=== PATIENT | female | born 1990 | race Caucasian/White ===

== ENCOUNTER → 2020-12-31 20:20 | Outpatient (CLI) | payer OTHER, SELFPAY | PROVIDERS: Visit Provider Nurse Practitioner Family | DX: Z20.822 Contact with and (suspected) exposure to COVID-19 (principal) | CPT/HCPCS: U0003 ==

== ENCOUNTER 2023-07-05 18:02 | Emergency (ER) | payer OTHER, SELFPAY ==
[2023-07-05 18:50] VITALS: BP 118/76; PULSE 68; RESP 18; TEMP 36.7; O2SAT 99; BMI 25.3
--- NOTE | 2023-07-05 19:03 | EXP.UTC ---
Discharge Plan Disposition Patient Disposition: Home, Self-Care Condition: Good Prescriptions Prescriptions: New nitrofurantoin monohyd/m-cryst [Macrobid] 100 mg capsule 100 mg PO Q12H 7 Days Qty: 14 0RF Rx Instructions: must administer with a meal/food phenazopyridine [Pyridium] 200 mg tablet 200 mg PO Q8H 2 Days Qty: 6 0RF No Action escitalopram oxalate 5 mg tablet 5 mg PO DAILY escitalopram oxalate 10 mg tablet 10 mg PO DAILY Referrals Follow up/Referrals: Tamera Singer PA [Primary Care Provider] - See instructions Activity Restrictions/Add. Instructions Additional Instructions/Restrictions: *Increase fluids. Water not Soda or Tea *Start antibiotic immediately and be sure to take as ordered for the FULL length of time although you should start to see improvement over the next 48 hours *Pyridium as needed Remember this medication will turn your urine . This is normal but it will stain what ever it gets on *You should not use Pyridium for more than 48 hours. If so , follow up with your primary physician to review urine culture and ensure that antibiotic is adequate for infection *Be SURE to follow up anytime for new or worsening symptoms with your family doctor. AND in 48 hours for urine culture results with your family doctor, if you do not have a doctor then you may call back to the [facility] for urine culture results and further treatment. We do recommend that you choose and establish care with a Primary Care Physician. ?AND follow up with them ?in 10-14 days to repeat UA to ensure infection is resolved and blood no longer present *Be sure to let your PCP know that we sent urine cultures from the [facility] so they can follow up to ensure that you area the on the correct antibiotic Call your doctor office and make appointment for 48 hours (2 days from today) ?to follow up and get the results of your urine culture and further treatment Clinical Impressions Clinical Impression: UTI (urinary tract infection) Stand Alone Forms Stand Alone Forms: Work/School Release Instructions Patient Instructions: DI for Urinary Tract Infection (UTI), Urinary Tract Infection Discharge ED Provider: Emilie Fontaine [facility] HPI General Stated complaint: Burning,frequency with urination Mode of Arrival: Ambulatory Source of Information: Patient Limitations: No Limitations Time Seen by Provider: 07/05/23 19:04 Description of Symptoms (Recalled from Triage Doc. by RN): PATIENT C/O URINARY FREQUENCY/URGENCY AND BLADDER SPASMS THAT STARTED TODAY HEENT Symptoms (Recalled from RN notes): No Resp Symptoms (Recalled from RN notes): No Skin Symptoms (Recalled from RN notes): No MS Symptoms (Recalled from RN notes): No Functional Status (Recalled from RN notes): WNL History of Present Illness Provider Complaint: Patient states that she started earlier with burning with urination, feeling of urgency and frequency, and feeling like she was having bladder spasms States as the day went on symptoms got worse so this evening when it was still bothering her she came in to get it checked and get something Related Data Home Medications Medication Instructions Recorded Confirmed escitalopram oxalate 5 mg tablet 5 mg PO DAILY 03/31/21 07/05/23 escitalopram oxalate 10 mg tablet 10 mg PO DAILY 07/05/23 07/05/23 Previous Rx's Medication Instructions Recorded nitrofurantoin 100 mg PO Q12H 7 days #14 caps 07/05/23 monohydrate/macrocrystals 100 mg capsule (Macrobid) phenazopyridine 200 mg tablet 200 mg PO Q8H pain 2 days #6 tabs 07/05/23 (Pyridium) Allergies Allergy/AdvReac Type Severity Reaction Status Date / Time Penicillins [PENICILLINS] Allergy Unknown Verified 03/31/21 13:44 From Penicillin G Sodium Allergy Unknown Uncoded 12/31/20 18:38 PCN (penicillin) Allergy Unknown Uncoded 12/31/20 18:38 Penicillin Allergy Unknown Uncoded 12/31/20 18:38 Worker's Comp Is this a Worker's Comp case?: No [facility] Disclaimer: The information contained in this section may have been updated after the patient was seen, as this information can be updated by other users. Medical History (Updated 07/05/23 @ 19:12 by Emilie Fontaine APRN) Anxiety Social History Smoking Status: Never smoker alcohol intake: never current occupational status: employed Travel in the last 8 weeks: None ROS Obtained: Yes All systems reviewed & no additional complaints except as documented and Yes Systems reviewed as appropriate & no additional complaints except as documented Constitutional Constitutional: Reports system reviewed and no additional complaints, except as documented, Reports as per HPI, Denies body ache, Denies chills and Denies fever(s) ENT Ears, Nose, Mouth, and Throat: Reports system reviewed and no additional complaints, except as documented and Reports as per HPI Cardiovascular Cardiovascular: Reports system reviewed and no additional complaints, except as documented and Reports as per HPI Respiratory Respiratory: Reports system reviewed and no additional complaints, except as documented and Reports as per HPI Gastrointestinal Gastrointestingal: Reports system reviewed and no additional complaints, except as documented and as per HPI Genitourinary Female Genitourinary: Reports system reviewed and no additional complaints, except as documented, Reports as per HPI, Reports dysuria, Reports urinary frequency and Reports urinary urgency Musculoskeletal Musculoskeletal: Reports system reviewed and no additional complaints, except as documented and Reports as per HPI Physical Exam General General appearance: alert and in no apparent distress ENT ENT exam: Present mucous membranes moist Respiratory Respiratory exam: Present normal lung sounds bilaterally; Absent respiratory distress or wheezes Cardiovascular Cardiovascular exam: Present regular rate, normal rhythm and normal heart sounds Neurological Exam Neurological exam: Present alert, oriented X3 and normal gait Medical Decision Making Mario Inquiry Pt receiving controlled substance: No Mario was queried for this patient: No Vital Signs: 07/05/23 18:50 Temperature 98.1 F Temperature Source Oral Pulse Rate [Left Brachial] 68 Respiratory Rate 18 Blood Pressure [Left Arm] 118/76 Blood Pressure Mean [Left Arm] 90 Blood Pressure Source [Left Arm] Automatic Cuff Blood Pressure Position [Left Arm] Sitting 02 Sat by Pulse Oximetry 99 Oxygen Delivery Method Room Air Lab Data Lab results reviewed: Yes I reviewed the patient's lab results. Orders (Tests/Meds): ORDERS Category Date Time Status Urine Culture Stat Micro 07/05/23 18:57 Ordered Medical Decision Narrative: Patient reports that she is currently on her period Reports mother is on her way to warehouse picker her medication so she can start it tonight
[2023-07-05 19:04] LABS: Apearance,Urine Turbid (Clear); Blood, Urine 3+ (Negative); Color,Urine Red (Yellow); Glucose,Urine (UA) Negative (Negative); Ketones,Urine Negative (Negative); Protein,Urine 1+ (Negative); Specific Gravity, Urine 1.025 (1.005-1.030)
[2023-07-05 19:05] LABS: Bilirubin,Urine Negative (Negative); UTC Leukocyte Esterase,Urine 3+ (Negative); UTC Nitrate,Urine Negative (Negative); Urobilinogen,Urine 0.2 EU/dl (0.2)
[2023-07-05 19:11] VITALS: BP 118/76; PULSE 68; RESP 18; TEMP 36.7; O2SAT 99
== END 2023-07-05 19:20 | disposition home or self-care (01) ==
PROVIDERS: Emergency Provider Nurse Practitioner; PCP Physician Assistant
DX: N39.0 Urinary tract infection, site not specified (principal); N32.89 Other specified disorders of bladder; F41.9 Anxiety disorder, unspecified
CPT/HCPCS: 81003; 87086; 99204; 99212; G0463

== ENCOUNTER 2025-01-18 08:02 | Outpatient (CLI) | payer OTHER, SELFPAY ==
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
--- OUTSIDE RECORDS SUMMARY | 2023-09-28 05:05 | XMS_ITS ---
Author Organization [facility] Address [address] [place] [id number] Care Team Providers Care Tax Representative Name Role Phone Shannon Ortiz Primary Care Provider AudeliaJoseSydnie Unavailable [phone] Tamera Singer Unavailable [phone] Results Component Value Reference Range Notes CBC Venipuncture (in house) Reviewed date:10/07/2023 04:47:23 PM Interpretation: Performing Lab: Notes/Report: wbc 5.1 3.5 - 10 lymph 25.7 15 - 50 mid 5.7 2 - 15 gran 68.6 35 - 80 rbc 4.19 3.5 - 5.5 hgb 13.5 11.5 - 16.5 hct 40.2 35 - 55 mcv 95.8 75 - 100 mch 32.2 25 - 35 mchc 33.6 31 - 38 platlet 325 100 - 400 P-Vitamin B12 Reviewed date:10/07/2023 04:47:23 PM Interpretation:Normal Performing Lab: Notes/Report: Test performed by [facility] [address] [place], [place] [address] [address] , [address], [place] [address] Ravinder Webber MD, [employer] CLIA: [id number] Vitamin B12 360 514-7447 pg/mL P-Comprehensive Metabolic Pa ailyn (CMP) Reviewed date:10/07/2023 04:47:23 PM Interpretation:gluc 100 Performing Lab: Notes/Report: Test performed by [facility] [address] [place], [place] [address] [address] , [address], [place] [address] Ravinder Webber MD, [employer] Operator CLIA: [id number] Sodium 141 135-145 mEq/L Potassium 4.3 3.5-5.3 mEq/L Chloride 106 97-108 mEq/L CO2 24 22-32 mEq/L Glucose 100 65-99 mg/dL BUN 11 6-20 mg/dL Creatinine 0.70 0.50-1.00 mg/dL Calcium 9.1 8.6-10.4 mg/dL eGFR by Creatinine 117 >59 mL/min/1.73m2 Protein 6.8 6.0-8.3 g/dL Albumin 4.3 3.5-5.3 g/dL Alkaline Phosphatase 61 35-121 IU/L ALT (SGPT) 17 <5-47 IU/L AST (SGOT) 19 <5-40 IU/L Bilirubin, Total 0.6 <0.2-1.2 mg/dL A/G Ratio 1.7 1.1-2.5 mg/dL P-Lipid Panel Reviewed date:10/07/2023 04:47:23 PM Interpretation:Normal Performing Lab: Notes/Report: Test performed by [facility], [address] , [address], [place] [address] Ravinder Webber MD, [employer] Operator CLIA: [id number] Cholesterol 170 <200 mg/dL Triglycerides 55 <150 mg/dL HDL Cholesterol 56 >39 mg/dL Cholesterol / HDL Ratio 3.04 0.00-4.44 Ratio Non-HDL Cholesterol 114 <130 mg/dL LDL Cholesterol (Calculation) 103 <130 mg/dL LDL Cholesterol Levels* Less than 100 mg/dL Optimal 100 to 129 mg/dL Near Optimal/ Above Optimal 130 to 159 mg/dL Borderline High 160 to 189 mg/dL High 190 mg/dL and above Very High * Categories as recommended by the 2004 ATPIII guidelines LDL/HDL Ratio 1.8 <3.3 Ratio LDL Cholesterol Patient History Test Date: 02/13/2022 LDL Results: 116 Units: mg/dL % Change: - Test Date: 09/28/2023 LDL Results: 103 Units: mg/dL % Change: -11% P-TSH Reviewed date:10/07/2023 04:47:23 PM Interpretation:Normal Performing Lab: Notes/Report: Test performed by [facility] [address] [place] [address] , [address], [place] [address] Ravinder Webber MD, [employer] Operator CLIA: [id number] TSH 4.43 0.43-5.25 mU/L REASON FOR VISIT labs Encounters Encounter Location Date Provider Diagnosis [facility] [address] [facility] [address] [place], [place] [id number] 09/28/2023 Tamera Singer Anxiety with depress ion F41.8 ; Screening, lipid Z13.220 ; Encounter for immunization Z23 ; Acute conjunctivitis of both eyes, unspecified acute conjunctivitis type H10.33 ; Vitamin B12 deficiency E53.8 and Other fatigue R53.83 Assessments Encounter Date Diagnosis (ICD Code) Assessment Notes Treatment Notes Treatment Clinical Notes Section Notes 09/28/2023 Anxiety with depression (ICD-10 - F41.8) 09/28/2023 Screening, lipid (ICD-10 - Z13.220) 09/28/2023 Encounter for immunization (ICD-10 - Z23) 09/28/2023 Acute conjunctivitis of both eyes, unspecified acute conjunctivitis type (ICD-10 - H10.33) 09/28/2023 Vitamin B12 deficiency (ICD-10 - E53.8) 09/28/2023 Other fatigue (ICD-10 - R53.83) Plan Of Treatment No Information Progress Notes * Veronica SAHUJEMALDOB:11/1990 (34 yo F)Acc No.[id number]:09/28/2023 Patient: Veronica GARCIA Provider: NERI Irene :1990 A ge:33 Y S ex:Female Date:09/28/2023 Address:[address] [place] [address] [place], [id number] Pcp:Shannon Ortiz Subjective: * Chief Complaints: * 1 . Labs. * Medical History: Objective: * Vitals: Assessment: * Assessment: 1. A nxiety with depression - F41.8 2 . S creening, lipid - Z13.220 ? 3 . E ncounter for immunization - Z23 4 . A cute conjunctivitis of both eyes, unspecified acute conjunctivitis type - H10.33 5 . V itamin B12 deficiency - E53.8 6 . O ther fatigue - R53.83 Plan: * Treatment: Value Reference Range w bc 5.1 3.5 - 10 * l ymph 25.7 15 - 50 * m id 5.7 2 - 15 * g ran 68.6 35 - 80 * r bc 4.19 3.5 - 5.5 * h gb 13.5 11.5 - 16.5 * h ct 40.2 35 - 55 * m cv 95.8 75 - 100 * m ch 32.2 25 - 35 * m chc 33.6 31 - 38 * p latlet 325 100 - 400 * Mounika Soto 09/28/2023 2:42: 14 PM > Tamera Singer 10/07/2023 4:47:16 PM > see TE 2.?Vitamin B12 deficiency?LAB: P-Vitamin B12 (Collection Date & Time - 09/28/2023 08:15 AM)?Normal* Value Reference Range V itamin B12 891 555-8086 - pg/mL * Tamera Singer 10/07/2023 4: 47:16 PM > see TE 3.?Other fatigue?LAB: P-Comprehensive Metabolic Panel (CMP) (Collection Date & Time - 09/28/2023 08:15 AM)?gluc 100* Value Reference Range A /G Ratio 1.7 1.1-2.5 - mg/dL * A lbumin 4.3 3.5-5.3 - g/dL * A lkaline Phosphatase 61 35-121 - IU/L * A LT (SGPT) 17 <5-47 - IU/L * A ST (SGOT) 19 <5-40 - IU/L * B ilirubin, Total 0.6 <0.2-1.2 - mg/dL * B UN 11 6-20 - mg/dL * C alcium 9.1 8.6-10.4 - mg/dL * C hloride 106 97-108 - mEq/L * C O2 24 22-32 - mEq/L * C reatinine 0.70 0.50-1.00 - mg/dL * G lucose 100 H 65-99 - mg/dL * P otassium 4.3 3.5-5.3 - mEq/L * S odium 141 135-145 - mEq/L * P rotein 6.8 6.0-8.3 - g/dL * e GFR by Creatinine 117 >59 - mL/min/1.73m2 * Tamera Singer 10/07/2023 4: 47:16 PM > see TE ?LAB: P-Lipid Panel (Collection Date & Time - 09/28/2023 08:15 AM)?Normal* Value Reference Range C holesterol / HDL Ratio 3.04 0.00-4.44 - Ratio * C holesterol 170 <200 - mg/dL * H DL Cholesterol 56 >39 - mg/dL * L DL Cholesterol (Calculation) 103 <130 - mg/d L * L DL/HDL Ratio 1.8 <3.3 - Ratio * N on-HDL Cholesterol 114 <130 - mg/dL * T riglycerides 55 <150 - mg/dL * Tamera Singer 10/07/2023 4: 47:16 PM > see TE ?LAB: P-TSH (Collection Date & Time - 09/28/2023 08:15 AM)?Normal* Value Reference Range T SH 4.43 0.43-5.25 - mU/L * Tamera Singer 10/07/2023 4: 47:16 PM > see TE * Procedure Codes: 8 5025 CBC WITH AUTO DIFF, 13796 VENIPUNCT, ROUTINE* * Images: Billing Information: * Visit Code: * Procedure Codes: 88534 CBC WITH AUTO DIFF. 73364 VENIPUNCT, ROUTINE*. * Electronic signature of NERI Coleman on 01/18/2025 at 08:05 AM EDT Sign off status: Pending * Provider: NERI Irene Date: 0 09/28/2023 Generated for Robin aj/Ava/eTransmmichelle on: 0 01/18/2025 08:05 AM EDT
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
--- OUTSIDE RECORDS SUMMARY | 2025-01-18 08:06 | XMS_ITS | Patient Health Record ---
Author Organization [facility] [place], operated [facility] Address [address] [facility] [address] [place] [address] Care Team Providers Care Physicist Acoustics Name Role Phone Anita Gomez Unavailable [phone] Allergies No Known Allergies Results Component Value Reference Range Notes Pap w/HPV Reviewed date:04/21/2024 04:43:11 PM Interpretation:Pap normal, HPV negative Performing Lab:[facility] - [facility] CLIA ID [id number], [address], [address], [place] [address], Director - Shakir Gutierres MD Notes/Report: Any Nucleic Acid Amplification testing is performed on the [employer] [place]. Diagnosis: Negative for intraepithelial lesion or malignancy. AP results FINAL GATE AGENT CYTOLOGY REPORT DIAGNOSIS: Negative for intraepithelial lesion or malignancy. Specimen Adequacy: Satisfactory for interpretation with endocervical/transformat ion zone component present. Pertinent Clinical History/History of Surgery: Not provided Collection Technique: Not provided Results of Last Pap: Not provided LMP: IUD Date of Last Pap: Not provided Specimen Source: Cervical/Endocervical Specimen Type: ThinPrep Other Gynecological Patient Information: IUD Recommendation: Follow-up based on current clinical guidelines and/or clinical consideration. Screening note: This specimen has been analyzed by the NemediaPrep Imaging System, an interactive computer system which assists the lab in screening of ThinPrep Pap Test slides. Following imaging, the slide was reviewed by a Crushing Mill Operator and/or Pathologist. Negative Educational Note: The pap screening test aids in the detection of premalignant and malignant states of the cervix. False positive and negative results may occur. It is not a diagnostic test. If abnormal cells are reported, follow-up based on current clinical guidelines and/or clinical consideration is recommended. Trinidad Klein Crushing Mill Operator Rescreened by on 04/17/2024 Catrachita Barker Crushing Mill Operator CPT Codes: 42975 ICD Codes: Z01.419 HPV High-Risk Negative Negative Reason For Referral No Information Medications Medication SIG (Take, Route, Frequency, Duration) Notes Start Date End Date Status Escitalopram Oxalate 5 MG Tablet TAKE 1 TABLET BY MOUTH ONCE DAILY FOR 90 DAYS Oral; Duration: 30 Days Active Mirena (52 MG) Activ e Vitamin B 12 Active Escitalopram Oxalate 10 MG Tablet TAKE 1 TABLET BY MOUTH ONCE DAILY FOR 90 DAYS Oral; Duration: 30 Days Active Social History Tobacco Use: Social History Observation Description Date Details (start date - stop date) Never Smoker NA - NA Sex Assigned At : Social History Observation Description Sex Assigned At Female Social History Drugs/Alcohol: Social Info Question Answer Notes Drugs Have you used drugs other than those for medical reasons in the past 12 months? None Drug/Alcohol: Social Info Question Answer Notes AUDIT-C (Standard) Did you have a drink containing alcohol in the past year? Yes Tobacco Use: Social Info Question Answer Notes Tobacco Control (Standard) Tobacco use: Nonsmoker Additional Details Category Social Info Options Details Miscellaneous: Domestic violence: No Do you have any shinto, m oral, or cultural beliefs or customs that your provider should know about? None Would you object to blood products in the event of an emergency? No Vital Signs Blood pressure diastolic 62 mm Hg 04/03/2024 Height 63 in 04/03/2024 Blood pressure systolic 102 mm Hg 04/03/2024 Weight 144.0 lbs 04/03/2024 BMI 25.51 kg/m2 04/03/2024 Encounters Encounter Location Date Provider Diagnosis [facility] [address] [place] [address] 04/03/2024 Anita Gomez Suction Operator exam without abnormal findings Z01.419 Assessments Encounter Date Diagnosis (ICD Code) Assessment Notes Treatment Notes Treatment Clinical Notes Section Notes 04/03/2024 Suction Operator exam without abnormal findings (ICD-10 - Z01.419) Here for annual exam. No concerns, had PCP. Pap done, strings seen, IUD good for 4 more years and pap in 3 years. Plan Of Treatment No Information Insurance Providers Payer Name Payer Address Payer Phone Subscriber Number Group Number Insured Name Patient Relationship to Insured Coverage Start Date Coverage End Date [facility] [address] [address] [place], [place] [phone] [id number] Veronica De Los Santos Self - patient is the insured Medical (General) History Medical History History ICD Code Medical History: Anxiety Medical History: None,Anxiety Hospitalization History Reason Date(Month/Year) labor and delivery x2
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
[2025-01-18 09:31] LABS: Alanine Aminotransferase 18 U/L (12-78); Albumin Level 4.1 g/dl (3.5-5.0); Alkaline Phosphatase 53 U/L (38-126); Aspartate Amino Transferase 23 U/L (14-36); Bilirubin,Direct 0.0 mg/dl (0.0-0.4); Bilirubin,Indirect 0.6 mg/dL (0.0-0.9); Bilirubin,Total 0.6 mg/dl (0.2-1.3); Bilirubin,Unconjugated 0.6 mg/dL (0.0-1.1); Blood Urea Nitrogen 9 mg/dl (7-17); Creatinine,Serum 0.60 mg/dl (0.52-1.04); Estimated Glomerular Filt Rate 114 ml/min (>60); GFR (African American) 138 ML/MIN (>60); Total Protein,Serum 6.3 g/dl (6.3-8.2)
== END 2025-01-18 23:59 | disposition home or self-care (01) ==
LOC: LAB 08:04
PROVIDERS: PCP Physician Assistant; Visit Provider Dermatology Dermatopathology
DX: L70.0 Acne vulgaris (principal)
CPT/HCPCS: 36415; 80076; 82565; 82947; 84520; 84702